=== PATIENT | male | born 1935 | race Caucasian/White ===

== ENCOUNTER → 2020-01-03 | Outpatient (CLI) | payer MEDICARE, BC ==
--- NOTE | 2020-01-03 12:18 | Diagnostic Imaging Report ---
EXAMINATION: CT Abdomen Pelvis without contrast. TECHNIQUE: Multiple contiguous axial images were obtained through the abdomen and pelvis without the use of intravenous contrast. All CT scans use one or more of the following dose optimizing techniques: automated exposure control, MA and/or KvP adjustment based on a patient size and exam type, or iterative reconstruction. HISTORY: GROSS HEMATURIA COMPARISON: None available. FINDINGS: Limited views of the lower thorax there are bilateral lower lung reticulations and septal line thickening which may be related to fibrosis or atelectasis. Coronary arteries are calcified. The liver is normal without focal lesion. There is no biliary ductal dilation. Gallbladder is not seen. Pancreas is normal. Spleen is normal. Adrenal glands are normal. Incidental note is made of a duodenal diverticulum. There is right-sided parapelvic cyst. No suspicious renal lesions are seen. No hydronephrosis. There is a cyst in the left upper pole of the left kidney. There are no renal or ureteral stones. There is no hydronephrosis. Bladder is decompressed. Wall thickening may be related to decompression but is slightly more than expected, particularly along the posterior aspect of the urinary bladder. Visualized bowel is normal in caliber without obstruction or inflammation. No free fluid or air. No abdominal or pelvic lymphadenopathy. Abdominal aorta is heavily calcified but nonaneurysmal. There are no suspicious osseus lesions. There is moderate degenerative disc and facet disease in the lumbar spine. IMPRESSION: 1. Asymmetric bladder wall thickening along the right posterior aspect urinary bladder concerning for an underlying bladder neoplasm. This could less likely be related to decompression of the bladder. Consider either cystoscopy or CT urogram. Dictated by: Dictated on workstation # [id number]
== END ==
LOC: RAD 11:30
PROVIDERS: ATTEND Urology
DX: R31.0 Gross hematuria (principal)
CPT/HCPCS: 74176

== ENCOUNTER 2020-01-07 09:21 | Outpatient (CLI) | payer MEDICARE, BC ==
[~2020-01-07] VITALS: Ht 165 cm; Wt 106.0 kg
[2020-01-07] MEDS ORDERED: SIMV20TA26 PO (11:44)
[2020-01-07] MEDS ORDERED: CLOP75TA69 PO (11:44)
[2020-01-07] MEDS ORDERED: LISI10TA2 PO (11:44)
[2020-01-07] MEDS ORDERED: SULF1TAB35 PO (11:44)
== END 2020-01-07 12:14 | disposition home or self-care (01) ==
LOC: PREOP 09:21
PROVIDERS: ATTEND Urology
DX: Z01.818 Encounter for other preprocedural examination (principal)

== ENCOUNTER 2020-01-10 07:48 | Day surgery (SDC) | payer MEDICARE, BC ==
[2020-01-10] VITALS (11 sets, daily range): BP systolic 83–117; BP diastolic 46–64
[~2020-01-10] VITALS: Ht 165 cm; Wt 106.0 kg
[~2020-01-10 07:48] MED LIST: CLOP75TA69 PO; LISI10TA2 PO; SIMV20TA26 PO; SULF1TAB35 PO
--- OUTSIDE RECORDS SUMMARY | 2020-01-10 07:53 | XMS REPORT | Continuity of Care Document ---
Author Organization Unknown Address Unknown Phone Unavailable Allergies Active Description Code Type Severity Reaction Onset Reported/Identified Relationship to Patient Clinical Status Yes No Known Drug Allergies [id number] Drug Allergy Unknown N/A 01/07/2020 Medications There is no data. Problems Date Dx Coded Attending Type Code Diagnosis Diagnosed By 01/05/2020 SONYA MCMAHAN, YAEL A Ot R31.0 GROSS HEMATURIA 01/07/2020 SONYA MCMAHAN, YAEL A Ot R31.0 GROSS HEMATURIA 01/07/2020 SONYA MCMAHAN, YAEL A Ot R31.0 GROSS HEMATURIA 01/07/2020 SONYA MCMAHAN, YAEL A Ot R31.0 GROSS HEMATURIA 01/07/2020 SONYA MCMAHAN, YAEL A Ot R31.0 GROSS HEMATURIA 01/07/2020 SONYA MCMAHAN, YAEL A Ot R31.0 GROSS HEMATURIA Procedures There is no data. Results Test Result Range CBC - 11/03/19 13:29 WHITE BLOOD CELL COUNT 8.6 Thousand/uL 3 .8-10.8 RED BLOOD CELL COUNT 4.74 Million/uL 4.2 0-5.80 HEMOGLOBIN 15.4 g/dL 13.2-17.1 HEMATOCRIT 44.0 % 38.5-50.0 MCV 92.8 fL 80.0-100.0 MCH 32.5 pg 27.0-33.0 MCHC 35.0 g/dL 32.0-36.0 RDW 13.0 % 11.0-15.0 PLATELET COUNT 286 Thousand/uL 140-400 MPV 10.3 fL 7.5-12.5 ABSOLUTE NEUTROPHILS 4515 cells/uL 1500- 7800 ABSOLUTE LYMPHOCYTES 2795 cells/uL 850-3 900 ABSOLUTE MONOCYTES 860 cells/uL 200-950 ABSOLUTE EOSINOPHILS 387 cells/uL 15-500 ABSOLUTE BASOPHILS 43 cells/uL 0-200 NEUTROPHILS 52.5 % NRG LYMPHOCYTES 32.5 % NRG MONOCYTES 10.0 % NRG EOSINOPHILS 4.5 % NRG BASOPHILS 0.5 % NRG CULTURE, URINE - 11/03/19 13:29 CULTURE, URINE, ROUTINE NRG PSA (FREE AND TOTAL) - 11/18/19 10:04 PSA, TOTAL 0.9 ng/mL < OR = 4.0 PSA, FREE 0.4 ng/mL NRG PSA, % FREE 44 % (calc) >25 Encounters ACCT No. Visit Date/Time Discharge Status Pt. Type Provider Facility Loc./Unit Complaint [id number] 11/03/2019 13:00:00 11/03/2019 23:59: 59 CLS Outpatient VIVIAN ALSTON MANDI [id number] 11/18/2019 10:00:00 Document Registration [id number] 11/03/2019 13:00:00 Document Registration [id number] 01/07/2020 09:21:00 020 12:14:00 DIS Outpatient YAEL HASSNA MD [facility] PREOP BLADDER TUMOR [id number] 01/03/2020 11:30:00 020 23:59:59 CLS Outpatient YAEL HASSAN MD [facility] RAD GROSS HEMATURIA [id number] 01/10/2020 10:00:00 P EN [facility]read[facility]
[2020-01-10] MEDS ORDERED: cefTRIAXone FOR IV USE 1,000 MG in WATER (STERILE) FOR INJECTION 10 ML IV ONE (08:00)
--- NOTE | 2020-01-10 08:14 | Progress Note-Pre Operative ---
Pre-Operative Progress Note H&P Reviewed The H&P was reviewed, patient examined and no changes noted. 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
[2020-01-10] MEDS ORDERED: CATHETER FLUSH 10 ML SYR IV PRN (08:15)
[2020-01-10] MEDS: LACTATED RINGERS 1,000 ML IV PRN ×2 (08:57→11:34)
[2020-01-10] MEDS ORDERED: fentaNYL INJECTION 100 MCG/2 ML AMP ONE (09:07)
[2020-01-10] MEDS ORDERED: ONDANSETRON 4 MG/2 ML (SDV) Z0FRAN ONE (09:08)
[2020-01-10] MEDS ORDERED: SEVOFLURANE (ULTANE) 15 ML INHAL SOLN ONE ×5 (09:08→10:31)
[2020-01-10] MEDS ORDERED: proPOfol 200 MG/20 ML (DIPRIVAN) VIAL IV ONE (09:08)
[2020-01-10] MEDS ORDERED: LIDOCAINE PF 2% 5 ML (XYLOCAINE) VIAL ONE (09:08)
[2020-01-10] MEDS ORDERED: PHENYLEPHRINE 100 MCG/ML 10 ML (ANESTHESIA) SYR ONE (09:34)
--- NOTE | 2020-01-10 10:29 | Progress Note-Post Operative ---
Post-Operative Progess Note Surgeon (s)/Informatics Physician Liaison (s) Surgeon YAEL HASSAN MD Informatics Physician Liaison: NONE Pre-Operative Diagnosis BLADDER MASS POSSIBLE TUMOR Post-Operative Diagnosis LARGE BLADDER TUMOR Procedure & Operative Findings Date of Procedure 01/10/20 Procedure Performed/Findings TURBT Anesthesia Type GENERAL Estimated Blood Loss Estimated blood loss (mL): LESS THAN 50CC Specimens/Packing Specimens Removed BLADDER TUMOR CHIPS Packing: NONE YAEL HASSAN MD Jan 10, 2020 10:29
--- NOTE | 2020-01-10 10:33 | Discharge Inst-Urology ---
Discharge Inst-Urology Reconcile Patient Problems Problems Reviewed?: Yes Final Diagnosis LARGE BLADDER TUMOR Patient Instructions/Follow Up Plan/Assessment/Instructions Please make appointment to been seen in office in 1 week. Please report condition of patient and urine once fully awake In one week, if no bleeding, may resume Plavix, stop if starts bleeding. Keep bowels soft and moving Increase oral fluids for 48 hours and then as needed. Diet and Activity as tolerated. If questions or concerns contact your physician Or seek help at emergency department. YAEL HASSAN MD Jan 10, 2020 10:33
[2020-01-10] MEDS ORDERED: SULF1TAB35 PO (10:50)
[2020-01-10] MEDS ORDERED: HYOS0.1281 PO (10:50)
[2020-01-10] MEDS ORDERED: PHEN-640 PO (10:50)
--- NOTE | 2020-01-10 10:51 | Anesthesia-General Post-Op ---
General Patient Condition Mental Status/LOC: Same as Preop Cardiovascular: Satisfactory Nausea/Vomiting: Absent Respiratory: Satisfactory Pain: Controlled Complications: Absent Post Op Complications Complications None Follow Up Care/Instructions Patient Instructions None needed. Anesthesia/Patient Condition Patient Condition Patient is doing well, no complaints, stable vital signs, no apparent adverse anesthesia problems. No complications reported per nursing. ROSA ARTEAGA CRNA Jan 10, 2020 10:51
[2020-01-10] MEDS ORDERED: morphine INJ 10 MG/ML 1ML (SYR OR VIAL) IVP ONE (11:00)
[2020-01-10] MEDS ORDERED: ONDANSETRON 4 MG/2 ML (SDV) Z0FRAN IVP PRN (11:00)
--- NOTE | 2020-01-10 15:05 | OPERATIVE REPORT ---
DATE OF SERVICE: 01/10/2020 PREOPERATIVE DIAGNOSIS: Gross hematuria with possible bladder tumor. POSTOPERATIVE DIAGNOSIS: Gross hematuria with possible bladder tumor, large bladder tumor. SURGEON: Yael Hassan MD. ANESTHESIA: General. COMPLICATIONS: None. PROCEDURE: TURBT. DESCRIPTION OF PROCEDURE: Under satisfactory general anesthesia, the patient in a lithotomy position, genitalia were prepped and draped in the usual sterile fashion. Urethra was dilated with Allyson sound to #28-Romansh easily. A 25-Romansh resectoscope was introduced in the bladder, visualized was a large bladder tumor occupying almost the whole right side of the bladder and over the right ureteral orifice. I went ahead and resected as much as possible of the tumor that was kind of solid type with very little . I tried to be very conservative over the ureteral orifice on the right side, the left side was okay. I probably resected about 80% to 85% of the tumor as safely as possible. I cauterized the bleeders and hemostasis was complete. I could see efflux on both sides of the ureteral orifices, right and left. There was some tumor over the prostate area that was resected as well. Hemostasis was complete. Estimated blood loss was less than 50 mL, none of which was replaced. The patient tolerated the procedure and anesthesia well and was sent to recovery room in stable condition. PLAN: The plan was explained to the patient's family. We will see what the pathology report shows and manage accordingly. If this aggressive tumor is a high-grade and invasive, we will probably refer to oncology and/or urology at for input and treatment. This will be explained to the patient later on. Job ID: [id number] DocumentID: [id number] Dictated Date: 01/10/2020 10:36:53 [place] Date: 01/10/2020 15:04:24 Dictated By: YAEL HASSAN MD
== END 2020-01-10 13:05 | disposition home or self-care (01) ==
LOC: SDC 07:48
PROVIDERS: ATTEND Urology
DX: C67.9 Malignant neoplasm of bladder, unspecified (principal); Z11.2 Encounter for screening for other bacterial diseases; N40.0 Benign prostatic hyperplasia without lower urinary tract symptoms; E78.00 Pure hypercholesterolemia, unspecified; E78.5 Hyperlipidemia, unspecified; K57.90 Diverticulosis of intestine, part unspecified, without perforation or abscess without bleeding; I10 Essential (primary) hypertension; I25.10 Atherosclerotic heart disease of native coronary artery without angina pectoris; M19.91 Primary osteoarthritis, unspecified site; Z86.73 Personal history of transient ischemic attack (TIA), and cerebral infarction without residual deficits; Z79.899 Other long term (current) drug therapy; Z96.652 Presence of left artificial knee joint; Z87.891 Personal history of nicotine dependence
CPT/HCPCS: 87081; 93005